=== PATIENT | female | born 1990 | race Caucasian/White ===

== ENCOUNTER 2024-08-05 05:30 | Emergency (ER) | payer OTHER ==
[~2024-08-05] VITALS: Ht 152.4 cm; Wt 66.7 kg
[2024-08-05 05:34] VITALS: BP 172/119; PULSE 142; RESP 18; TEMP 97.7; O2SAT 100
[2024-08-05] MEDS: NACL 0.9% 2,000 ML IV ONE (06:05)
[2024-08-05] MEDS: ACETAMINOPHEN EXTRA STRENGTH 500 MG TAB PO ONE (09:52)
[2024-08-05] MEDS: MIDAZOLAM 2 MG/2 ML VIAL IVP ONE (09:56)
[2024-08-05 11:34] LABS: BASOPHILS % (AUTO) 0.2 % (0.0-2.0); EOSINOPHILS % (AUTO) 0.1 % (0.0-4.0); HEMATOCRIT 39.6 % (36-48); HEMOGLOBIN 13.2 g/dL (12.0-16.0); LYMPHOCYTES # (AUTO) 1.7 K/uL (2.5-16.5); LYMPHOCYTES % (AUTO) 11.1 % (20.5-51.1); MEAN CORPUSCULAR HEMOGLOBIN 29 pg (27-31); MEAN CORPUSCULAR HGB CONC 33 g/dL (33-37); MEAN CORPUSCULAR VOLUME 87.1 fL (80-94); MONOCYTES % (AUTO) 6.7 % (1.7-9.3); NEUTROPHILS # (AUTO) 12.7 K/uL (1.8-7.7); NEUTROPHILS % (AUTO) 81.9 % (42.2-75.2); PLATELET COUNT (AUTO) 282 K/uL (140-450); RED BLOOD CELL COUNT(AUTO) 4.55 MIL/uL (4.20-5.40); RED CELL DISTRIBUTION WIDTH 14.9 % (11.6-13.7); WHITE BLOOD COUNT (AUTO) 15.6 K/uL (4.8-10.8)
[2024-08-05 11:51] LABS: ANION GAP 9.9 (8-16); CALCIUM 8.2 mg/dL (8.5-10.1); CARBON DIOXIDE 28.2 mmol/L (21-32); CREATININE 0.7 mg/dL (0.6-1.3); POTASSIUM 3.1 mmol/L (3.5-5.1)
[2024-08-05] MEDS: NACL 0.9% 1,000 ML IV ONE (11:52)
[2024-08-05 12:02] LABS: AMPHETAMINE, URINE POSITIVE ng/ml (NEG <=1000); BARBITURATE, URINE NEGATIVE ng/ml (NEG <=200); BENZODIAZEPINE, URINE NEGATIVE ng/mL (NEG <=200); CANNABINOID, URINE NEGATIVE ng/mL (NEG <=50); COCAINE, URINE NEGATIVE ng/mL (NEG <=300); OPIATE, URINE NEGATIVE ng/mL (NEG <=2000); PHENCYCLIDINE SCREEN,URINE NEGATIVE ng/mL (NEG <=25)
[2024-08-05 12:07] LABS: THYROID STIMULATING HORMONE 2.49 uIU/mL (0.34-3.74)
[2024-08-05] MEDS: MORPHINE SULFATE 4 MG/ML SYR IVP ONE (12:54)
[2024-08-05] MEDS: POTASSIUM CHLORIDE 20% 40 MEQ/15 ML UDC PO ONE (16:01)
[2024-08-05] MEDS: BACITRACIN OINT 500 UNITS/GM PKT TP ONE (16:54)
[2024-08-05 20:49] VITALS: BP 167/99; PULSE 123; RESP 20; TEMP 98.1; O2SAT 98
== END 2024-08-05 20:57 | disposition short-term general hospital (02) ==
LOC: MED 05:30
DX: S40.812A Abrasion of left upper arm, initial encounter (principal); S40.811A Abrasion of right upper arm, initial encounter; T14.8XXA Other injury of unspecified body region, initial encounter; M25.552 Pain in left hip; R00.0 Tachycardia, unspecified; I10 Essential (primary) hypertension; F31.9 Bipolar disorder, unspecified; D72.829 Elevated white blood cell count, unspecified; E87.6 Hypokalemia; V49.69XA Unspecified car occupant injured in collision with other motor vehicles in traffic accident, initial encounter; Y93.89 Activity, other specified; Y92.89 Other specified places as the place of occurrence of the external cause; Y99.8 Other external cause status
CPT/HCPCS: 36415; 71045; 71275; 74174; 80048; 80305; 81025; 83605; 84443; 84484; 85025; 93005; 96361; 96374; 96375; 99291; 99292; J2250; J2270; J7030; Q9967; 99285